=== PATIENT | male | born 1950 | race African-American/Black ===

== ENCOUNTER 2017-05-20 10:24 | Emergency (ER) | payer SELFPAY, MEDICARE ==
[2017-05-20 10:57] LABS: ADD MAN DIFF? NO
[2017-05-20 10:58] LABS: BILIRUBIN,URINE NEGATIVE (NEG); CLARITY,URINE CLEAR; COLOR,URINE YELLOW; GLUCOSE,URINE 100 mg/dL (NEG); NITRITE,URINE NEGATIVE (NEG); PROTEIN,URINE 30 mg/dL (NEG-TRACE)
[2017-05-20 10:59] LABS: BASO % 0 % (0-3); EOS # 0.1 x10^3/uL (0.0-0.7); EOS % 2 % (0-3); HEMATOCRIT 40.4 % (39.0-53.0); HEMOGLOBIN 13.7 g/dL (13.0-17.5); LYMPH # 1.2 x10^3/uL (1.0-4.8); LYMPH % 24 % (24-48); MEAN CORPUSCULAR HEMOGLOBIN 32 pg (25-35); MEAN CORPUSCULAR HGB CONC 34 g/dL (31-37); MEAN CORPUSCULAR VOLUME 94 fL (79-100); MONO # 0.6 x10^3/uL (0.0-1.1); MONO % 12 % (0-9); NEUT # 3.1 x10^3uL (1.8-7.7); NEUT % 62 % (31-73); PLATELET COUNT 188 x10^3/uL (140-400); RED BLOOD COUNT 4.31 x10^6/uL (4.30-5.70); RED CELL DISTRIBUTION WIDTH 14.2 % (11.5-14.5)
[2017-05-20 11:14] LABS: BACTERIA,URINE 0 /HPF (0-FEW); RBC,URINE 0 /HPF (0-2); SQUAMOUS EPITHELIAL CELL,UR MOD /LPF; WBC,URINE OCC /HPF (0-4)
[2017-05-20 11:16] LABS: ANION GAP 8 (6-14); BLOOD UREA NITROGEN 14 mg/dL (8-26); BUN/CREATININE RATIO 16 (6-20); CALCIUM 8.7 mg/dL (8.5-10.1); CARBON DIOXIDE 26 mmol/L (21-32); CHLORIDE 107 mmol/L (98-107); CREATININE 0.9 mg/dL (0.7-1.3); GFR 101.8; GLUCOSE 138 mg/dL (70-99); POTASSIUM 3.6 mmol/L (3.5-5.1); SODIUM 141 mmol/L (136-145)
[2017-05-20 11:20] LABS: TROPONINI < 0.017 ng/mL (0.000-0.055)
[2017-05-20 11:22] LABS: NT-PRO BNP 222 pg/mL (0-124)
[2017-05-20 11:26] LABS: ALBUMIN 3.5 g/dL (3.4-5.0); ALBUMIN/GLOBULIN RATIO 1.1 (1.0-1.7); ALK PHOS 77 U/L (46-116); ALT (SGPT) 35 U/L (16-63); AST (SGOT) 22 U/L (15-37); TOTAL BILIRUBIN 0.5 mg/dL (0.2-1.0); TOTAL PROTEIN 6.8 g/dL (6.4-8.2)
[2017-05-20] MEDS: IPRATRPIUM/ALBUTEROL 0.5/2.5MG 3 ML NEBU. NEB (12:31)
== END 2017-05-20 14:37 | disposition home or self-care (01) ==
LOC: ER 10:24
DX: R05 Cough (principal); R06.02 Shortness of breath; E11.9 Type 2 diabetes mellitus without complications; I10 Essential (primary) hypertension
CPT/HCPCS: 36415; 71045; 80053; 81001; 83880; 84484; 85025; 93005; 94640; 99285-25; J7620

== ENCOUNTER 2019-02-26 12:13 | Emergency (ER) | payer MEDICARE ==
[~2019-02-26] VITALS: Ht 176.5 cm; Wt 104.3 kg
[~2019-02-26 12:13] MED LIST: ALBU2.5V8 INH; AMLO10TA8 PO; ASPI-612 PO; ATOR40TA PO; HYDR-2145 PO; LABE200T4 PO; LISI-130 PO; METF10007 PO; METO-247 PO
[2019-02-26] MEDS ORDERED: LABETALOL 20 MG/4 ML DISP.SYRIN. IVP ONE (12:30)
[2019-02-26 13:00] LABS: BASO % 0 % (0-3); EOS # 0.1 x10^3/uL (0.0-0.7); EOS % 2 % (0-3); HEMATOCRIT 43.3 % (39.0-53.0); HEMOGLOBIN 14.8 g/dL (13.0-17.5); LYMPH # 1.1 x10^3/uL (1.0-4.8); LYMPH % 22 % (24-48); MEAN CORPUSCULAR HEMOGLOBIN 32 pg (25-35); MEAN CORPUSCULAR HGB CONC 34 g/dL (31-37); MEAN CORPUSCULAR VOLUME 94 fL (79-100); MONO # 0.4 x10^3/uL (0.0-1.1); MONO % 9 % (0-9); NEUT # 3.2 x10^3/uL (1.8-7.7); NEUT % 67 % (31-73); PLATELET COUNT 140 x10^3/uL (140-400); RED BLOOD COUNT 4.62 x10^6/uL (4.30-5.70); RED CELL DISTRIBUTION WIDTH 13.8 % (11.5-14.5); WHITE BLOOD COUNT 4.8 x10^3/uL (4.0-11.0)
[2019-02-26 13:20] LABS: CREATININE 1.1 mg/dL (0.7-1.3); GFR 80.3
[2019-02-26 13:24] LABS: ALBUMIN 3.8 g/dL (3.4-5.0); ALBUMIN/GLOBULIN RATIO 1.4 (1.0-1.7); TOTAL BILIRUBIN 0.7 mg/dL (0.2-1.0); TOTAL PROTEIN 6.6 g/dL (6.4-8.2)
--- NOTE | 2019-02-26 13:39 | EKG ---
[facility] [address] [place] [address] Test Date: 2019-02-26 Test Time: 12:43:58 Pat Name: ELIZABETH TOBIN Department: Room: Gender: M Fisher Mussel: : 1950 Requested By: NANI CHE Order Number: [id number] Reading MD: Measurements Intervals [place] Rate: 53 P: 38 LA: 202 QRS: -1 QRSD: 86 T: 3 QT: 462 QTc: 436 Interpretive Statements SINUS RHYTHM LEFTWARD AXIS ST & T ABNORMALITY, CONSIDER RECENT HIGH LATERAL MYOCARDIAL OR PERICARDIAL DAMAGE ABNORMAL ECG RI6.01 No previous ECG available for comparison
[2019-02-26] MEDS ORDERED: cloNIDine HCL 0.1 MG TABLET PO ONE (13:45)
--- NOTE | 2019-02-26 14:03 | PHYS DOC ---
Past Medical History Past Medical History: Cancer, Diabetes-Type II, High Cholesterol, Hypertension, Pneumonia Additional Past Medical Histor: prostate cancer Additional Past Surgical Histo: Prostatectomy Additional Information: quit smoking 07/21/2007 Alcohol Use: None Drug Use: None Adult General Chief Complaint Chief Complaint: HYPERTENSION HPI HPI Patient is a 68 year old -Prydeinig Prydeinig male with history of hypertension, diabetes who presents dizziness upon standing and blood pressure. Patient denies headache, blurred vision, extremity weakness loss of sensation of vertigo or leaning to one side. Patient does blood pressure which was 220s over 120s. Patient states he is compliant with his blood pressure medications but is not been so with his diet, fluids which and nitrates and sodium. Chest pain palpitations, shortness of breath, increased leg pain or swelling. No other acute symptoms or complaints. Blood pressure is 200s over 120s at triage. Review of Systems Review of Systems Review of symptoms as per history of present illness. All other review symptoms are negative. All other systems were reviewed and found to be within normal limits, except as documented in this note. Current Medications Current Medications Current Medications Medications (Trade) Dose Ordered Sig/Maria E Start Time Stop Time Status Last Admin Dose Admin Clonidine HCl (Catapres) 0.2 mg 1X ONCE 02/26/19 13:45 02/26/19 13:46 DC 02/26/19 14:20 0.2 MG Furosemide (Lasix) 20 mg 1X ONCE 02/26/19 14:45 02/26/19 14:46 DC 02/26/19 14:57 20 MG Labetalol HCl (Normodyne Iv Push) 20 mg 1X ONCE 02/26/19 12:30 02/26/19 12:32 DC 02/26/19 13:08 10 MG Allergies Allergies Allergies Coded Allergies Type Severity Reaction Last Updated Verified No Known Drug Allergies 05/09/17 No Physical Exam Physical Exam Constitutional: Well developed, well nourished, no acute distress, non-toxic appearance. [] HENT: Normocephalic, atraumatic, bilateral external ears normal, oropharynx moist, nose normal. [] Eyes: PERRLA, EOMI, conjunctiva normal, no discharge. [] Neck: Normal range of motion, no tenderness, supple, no stridor. [] Cardiovascular:Heart rate regular rhythm, no murmur [] Lungs & Thorax: Bilateral breath sounds clear to auscultation [] Abdomen: Bowel sounds normal, soft, no tenderness. [] Skin: Warm, dry, no erythema. [] Back: No tenderness. [] Extremities: No tenderness. [] Neurologic: Alert and oriented X 3, normal motor function, normal sensory function, no focal deficits noted. [] Psychologic: Affect normal, judgement normal, mood normal. [] Current Patient Data Vital Signs Vital Signs Date Time Temp Pulse Resp B/P (MAP) Pulse Ox O2 Delivery O2 Flow Rate FiO2 02/26/19 14:21 56 14 98 02/26/19 14:20 206/103 02/26/19 12:34 97.3 Room Air 97.3 Lab Values Laboratory Tests Test 02/26/19 12:50 02/26/19 13:57 White Blood Count 4.8 x10^3/uL (4.0-11.0) Red Blood Count 4.62 x10^6/uL (4.30-5.70) Hemoglobin 14.8 g/dL (13.0-17.5) Hematocrit 43.3 % (39.0-53.0) Mean Corpuscular Volume 94 fL (79-100) Mean Corpuscular Hemoglobin 32 pg (25-35) Mean Corpuscular Hemoglobin Concent 34 g/dL (31-37) Red Cell Distribution Width 13.8 % (11.5-14.5) Platelet Count 140 x10^3/uL (140-400) Neutrophils (%) (Auto) 67 % (31-73) Lymphocytes (%) (Auto) 22 % (24-48) L Monocytes (%) (Auto) 9 % (0-9) Eosinophils (%) (Auto) 2 % (0-3) Basophils (%) (Auto) 0 % (0-3) Neutrophils # (Auto) 3.2 x10^3/uL (1.8-7.7) Lymphocytes # (Auto) 1.1 x10^3/uL (1.0-4.8) Monocytes # (Auto) 0.4 x10^3/uL (0.0-1.1) Eosinophils # (Auto) 0.1 x10^3/uL (0.0-0.7) Basophils # (Auto) 0.0 x10^3/uL (0.0-0.2) Sodium Level 138 mmol/L (136-145) Potassium Level 4.0 mmol/L (3.5-5.1) Chloride Level 102 mmol/L (98-107) Carbon Dioxide Level 28 mmol/L (21-32) Anion Gap 8 (6-14) Blood Urea Nitrogen 13 mg/dL (8-26) Creatinine 1.1 mg/dL (0.7-1.3) Estimated GFR (Cockcroft-Gault) 80.3 BUN/Creatinine Ratio 12 (6-20) Glucose Level 111 mg/dL (70-99) H Calcium Level 9.0 mg/dL (8.5-10.1) Total Bilirubin 0.7 mg/dL (0.2-1.0) Aspartate Amino Transferase (AST) 23 U/L (15-37) Alanine Aminotransferase (ALT) 24 U/L (16-63) Alkaline Phosphatase 80 U/L (46-116) Troponin I Quantitative < 0.017 ng/mL (0.000-0.055) Total Protein 6.6 g/dL (6.4-8.2) Albumin 3.8 g/dL (3.4-5.0) Albumin/Globulin Ratio 1.4 (1.0-1.7) Urine Collection Type Unknown Urine Color Yellow Urine Clarity Clear Urine pH 7.0 Urine Specific [place] 1.015 Urine Protein Negative mg/dL (NEG-TRACE) Urine Glucose (UA) Negative mg/dL (NEG) Urine Ketones (Stick) Negative mg/dL (NEG) Urine Blood Negative (NEG) Urine Nitrite Negative (NEG) Urine Bilirubin Negative (NEG) Urine Urobilinogen Dipstick 1.0 mg/dL (0.2 mg/dL) Urine Leukocyte Esterase Negative (NEG) Urine RBC Rare /HPF (0-2) Urine WBC 0 /HPF (0-4) Urine Squamous Epithelial Cells Occ /LPF Urine Bacteria 0 /HPF (0-FEW) Laboratory Tests 02/26/19 12:50 Laboratory Tests 02/26/19 12:50 EKG EKG [EKG: Reviewed] Radiology/Procedures Radiology/Procedures [CXR: Reviewed] Course & Med Decision Making Course & Med Decision Making Pertinent Labs and Imaging studies reviewed. (See chart for details) Patient is asymptomatic in the ED. Blood pressure improved to 170s over 90s prior to discharge. Recommend continued home treatment, blood pressure monitoring and PCP follow-up for further management. Term precautions reviewed.] Dragon Disclaimer Dragon Disclaimer This electronic medical record was generated, in whole or in part, using a voice recognition dictation system. Departure Departure Impression: Primary Impression: Accelerated hypertension Disposition: 01 HOME, SELF-CARE Condition: STABLE Referrals: LEON VEE MD (PCP) Patient Instructions: Hypertension Additional Instructions: Resume blood pressure medications as scheduled upon returning home. Record daily blood pressure readings and follow-up with your primary care provider further management. Return to the ED if new or concerning symptoms NANI CHE DO Feb 26, 2019 14:03
[2019-02-26 14:05] LABS: BILIRUBIN,URINE NEGATIVE (NEG); COLOR,URINE YELLOW; NITRITE,URINE NEGATIVE (NEG); PROTEIN,URINE NEGATIVE (NEG-TRACE)
[2019-02-26 14:14] LABS: CLARITY,URINE CLEAR
[2019-02-26 14:15] LABS: BACTERIA,URINE 0 /HPF (0-FEW); RBC,URINE RARE /HPF (0-2); SQUAMOUS EPITHELIAL CELL,UR OCC /LPF; WBC,URINE 0 /HPF (0-4)
[2019-02-26] MEDS ORDERED: FUROSEMIDE 20 MG/2 ML VIAL. IVP ONE (14:45)
[2019-02-26 15:34] VITALS: BP 199/105
== END 2019-02-26 15:37 | disposition home or self-care (01) ==
LOC: ER 12:13
DX: I10 Essential (primary) hypertension (principal); E11.9 Type 2 diabetes mellitus without complications; E78.00 Pure hypercholesterolemia, unspecified; Z87.891 Personal history of nicotine dependence
CPT/HCPCS: 36415; 80053; 81001; 84484; 85025; 93005; 96374; 96375; 99285; J1940; J3490

== ENCOUNTER 2019-10-12 14:38 | Emergency (ER) | payer MEDICARE ==
[~2019-10-12] VITALS: Ht 177.8 cm; Wt 97.7 kg
[~2019-10-12 14:38] MED LIST changes: -ASPI-612 PO; +ASPI-886 PO
[2019-10-12 15:35] VITALS: BP 122/61
[2019-10-12] MEDS ORDERED: HYDR15CR20 TP (16:26)
[2019-10-12] MEDS ORDERED: CETI10TA16 PO (16:26)
--- NOTE | 2019-10-12 16:27 | PHYS DOC ---
Past Medical History Past Medical History: Cancer, Diabetes-Type II, High Cholesterol, Hypertension, Pneumonia Additional Past Medical Histor: prostate cancer Past Surgical History: Other Additional Past Surgical Histo: Prostatectomy Smoking Status: Former Smoker Alcohol Use: None Drug Use: None General Adult EDM: Chief Complaint: INSECT BITE HPI: HPI: Patient is a 69 year old AA male who presents to the emergency department with complaints of pain and itching after being stung by several yellow jackets while in his yard this afternoon. He denies any shortness of breath, wheezing, chest pain, nausea, vomiting, or rash. He reports that he was stung multiple times on his left lower leg, his right buttock, and his right thigh. He denies any bleeding or drainage from the sites. He describes the pain as burning and itching. He denies any alleviating factors. He denies any radiation of the pa in. Review of Systems: Review of Systems: Constitutional: Denies fever or chills. [] Respiratory: Denies cough or shortness of breath. [] Cardiovascular: Denies chest pain or edema. [] GI: Denies nausea, vomiting Musculoskeletal: Denies joint pain or swelling [] Integument: See HPI Neurologic: Denies headache, focal weakness or sensory changes. [] Psychiatric: Denies depression or anxiety. [] Heart Score: Risk Factors: Risk Factors: DM, Current or recent (<one month) smoker, HTN, HLP, family history of CAD, obesity. Risk Scores: Score 0 - 3: 2.5% MACE over next 6 weeks - Discharge Home Score 4 - 6: 20.3% MACE over next 6 weeks - Admit for Clinical Observation Score 7 - 10: 72.7% MACE over next 6 weeks - Early Invasive Strategies Allergies: Allergies: Allergies Coded Allergies Type Severity Reaction Last Updated Verified No Known Drug Allergies 05/09/17 No Physical Exam: PE: Constitutional: Well developed, well nourished, no acute distress, non-toxic appearance. [] HENT: Normocephalic, atraumatic, bilateral external ears normal, nose normal. [] Eyes: PERRLA, EOMI, conjunctiva normal, no discharge. [] Neck: Normal range of motion, no stridor. [] Cardiovascular:Heart rate regular rhythm, no murmur Lungs & Thorax: Respirations even and unlabored, no retractions, no respiratory distress, lungs CTA Skin: Warm, dry; no erythema or welts noted to the lower left leg, there are some erythemic welts with central punctum noted to the right buttock and right medial thigh, no bleeding, no drainage, no warmth, no surrounding cellulitis or streaking. Consistent with a insect sting/bite Extremities: No cyanosis, ROM intact, no edema. [] Neurologic: Alert and oriented X 3, no focal deficits noted. [] Psychologic: Affect normal, judgement normal, mood normal. [] Current Patient Data: Vital Signs: Vital Signs Date Time Temp Pulse Resp B/P (MAP) Pulse Ox O2 Delivery O2 Flow Rate FiO2 10/12/19 15:35 97.8 64 122/61 (81) 96 Room Air 97.8 EKG: EKG: [] Radiology/Procedures: Radiology/Procedures: [] Course & Med Decision Making: Course & Med Decision Making Pertinent Labs and Imaging studies reviewed. (See chart for details) Patient presented to the emergency department with complaints of itching and pain after being stung by multiple yellow jackets today. I encouraged the patient to apply cool cloths to the area as needed for comfort. I prescribed [id number] hydrocortisone cream and once daily Zyrtec. I encouraged patient to follow-up with his primary care doctor in 1 to 2 days if the symptoms persisted, return to the ER if symptoms worsened or he develops shortness of breath or difficulty swallowing. Patient verbalized an understanding of home care, medications, follow-up, and return to ED instructions and was in agreement with the plan of care. [] Yurion Disclaimer: Dragalba Disclaimer: This electronic medical record was generated, in whole or in part, using a voice recognition dictation system. Departure Departure Impression: Primary Impression: Allergic reaction to insect sting Qualified Codes: T63.483A - Toxic effect of venom of other arthropod, assault, initial encounter Disposition: 01 HOME, SELF-CARE Condition: STABLE Referrals: LEON VEE MD (PCP) Patient Instructions: Insect Sting Allergy Additional Instructions: Fill the prescriptions and take them as directed. Follow-up with your primary care doctor if symptoms persist, return to the ER if symptoms worsen or you develop shortness of breath or difficulty swallowing. You may also apply cool cloths to the affected sites as needed for comfort. Scripts Cetirizine Hcl (CETIRIZINE HCL) 10 Mg Tablet 1 TAB PO DAILY PRN for ITCHING, #30 TAB 0 Refills Prov: OMER KAPLAN APRN 10/12/19 Hydrocortisone Valerate (HYDROCORTISONE VALERATE) 15 Gm Cream..g. 1 HEATHER TP TID PRN for ITCHING for 7 Days, #30 GM 0 Refills 1% hydrocortisone cream Prov: OMER KAPLAN APRN 10/12/19 Justicifation of Admission Dx: Justifications for Admission: Justification of Admission Dx: N/A OMER KAPLAN APRN Oct 12, 2019 16:26
== END 2019-10-12 16:33 | disposition home or self-care (01) ==
LOC: ER 14:38
DX: T63.463A Toxic effect of venom of wasps, assault, initial encounter (principal); T78.40XA Allergy, unspecified, initial encounter; E11.9 Type 2 diabetes mellitus without complications; E78.00 Pure hypercholesterolemia, unspecified; I10 Essential (primary) hypertension; Z87.891 Personal history of nicotine dependence; Y92.89 Other specified places as the place of occurrence of the external cause
CPT/HCPCS: 99282

== ENCOUNTER 2020-09-08 08:57 | Emergency (ER) | payer MEDICARE ==
[~2020-09-08] VITALS: Ht 177.8 cm; Wt 96.3 kg
[~2020-09-08 08:57] MED LIST changes: +AMLO-187 PO; -AMLO10TA8 PO; +CETI10TA16 PO; +HYDR15CR20 TP
[2020-09-08 09:38] LABS: BASO % 1 % (0-3); EOS # 0.1 x10^3/uL (0.0-0.7); EOS % 2 % (0-3); HEMATOCRIT 37.8 % (39.0-53.0); LYMPH # 1.1 x10^3/uL (1.0-4.8); LYMPH % 24 % (24-48); MEAN CORPUSCULAR HEMOGLOBIN 32 pg (25-35); MEAN CORPUSCULAR HGB CONC 35 g/dL (31-37); MEAN CORPUSCULAR VOLUME 93 fL (79-100); MONO # 0.5 x10^3/uL (0.0-1.1); MONO % 11 % (0-9); NEUT # 2.9 x10^3/uL (1.8-7.7); NEUT % 63 % (31-73); PLATELET COUNT 139 x10^3/uL (140-400); RED BLOOD COUNT 4.05 x10^6/uL (4.30-5.70); RED CELL DISTRIBUTION WIDTH 13.9 % (11.5-14.5); WHITE BLOOD COUNT 4.6 x10^3/uL (4.0-11.0)
[2020-09-08 09:46] LABS: CALCIUM 9.6 mg/dL (8.5-10.1); CREATININE 1.4 mg/dL (0.7-1.3)
[2020-09-08 09:47] LABS: GFR 60.6; POTASSIUM 3.4 mmol/L (3.5-5.1)
[2020-09-08 09:52] LABS: ALBUMIN 3.7 g/dL (3.4-5.0); ALBUMIN/GLOBULIN RATIO 1.1 (1.0-1.7); TOTAL BILIRUBIN 0.6 mg/dL (0.2-1.0)
--- NOTE | 2020-09-08 09:58 | EKG ---
[facility] [address] [place] [address] Test Date: 2020-09-08 Test Time: 09:04:16 Pat Name: ELIZABETH TOBIN Department: Room: Gender: Desulphurizer Operator: : 1950 Requested By: JOSIE QUINONEZ Order Number: [id number] Reading MD: Measurements Intervals [place] Rate: 71 P: 44 [place]: 220 QRS: 26 QRSD: 74 T: 29 QT: 396 QTc: 430 Interpretive Statements SINUS RHYTHM PROLONGED [place] INTERVAL ABNORMAL ECG RI6.01 No previous ECG available for comparison
--- NOTE | 2020-09-08 10:34 | ED.ADGEN ---
Past Medical History Past Medical History: Cancer, Diabetes-Type II, High Cholesterol, Hypertension, Pneumonia Additional Past Medical Histor: prostate cancer Past Surgical History: Other Additional Past Surgical Histo: Prostatectomy Smoking Status: Former Smoker Alcohol Use: None Drug Use: None General Adult EDM: Chief Complaint: OTHER COMPLAINTS HPI: HPI: Patient is 69-year-old male who presents to the emergency room with his for concern of possible heatstroke yesterday. Patient worked outside throughout the day yesterday. His states that he does a lot of sweating when he works outside. Patient states that he drinks lots of water when he is working outside does not typically drink any kind of Gatorade. His states that he was complaining of feeling lightheaded and like his arm was not fully moving. Patient states that he just feels tired. He feels otherwise normal. Review of Systems: Review of Systems: Complete ROS is negative unless otherwise documented in HPI Current Medications: Current Medications Medications (Trade) Dose Ordered Sig/Maria E Start Time Stop Time Status Last Admin Dose Admin Sodium Chloride 1,000 ml @ 1,000 mls/hr 1X ONCE 09/08/20 10:45 09/08/20 11:44 09/08/20 11:32 1,000 MLS/HR Allergies: Allergies: Allergies Coded Allergies Type Severity Reaction Last Updated Verified No Known Drug Allergies 05/09/17 No Physical Exam: PE: General: Awake, alert, NAD. Well Nourished, well hydrated. Cooperative HEENT: Atraumatic, EOMI, PERRL, airway patent, moist oral mucosa Neck: Supple, trachea midline Respiratory: CTA bilaterally, normal effort, no wheezing/crackles CV: RRR, no murmur, cap refill <2 GI: Soft, nondistended, nontender, no masses MSK: No obvious deformities Skin: Warm, dry, intact Neuro: A&O x3, speech NL, 5/5 strength in BUE/BLE distally and proximally, CN 2- 12 intact, cerebellar testing normal Psych: Normal affect, normal mood, not suicidal or homicidal Current Patient Data: Labs: Laboratory Tests Test 09/08/20 09:08 09/08/20 09:24 09/08/20 11:02 Glucose (Fingerstick) 113 mg/dL (70-99) H White Blood Count 4.6 x10^3/uL (4.0-11.0) Red Blood Count 4.05 x10^6/uL (4.30-5.70) L Hemoglobin 13.0 g/dL (13.0-17.5) Hematocrit 37.8 % (39.0-53.0) L Mean Corpuscular Volume 93 fL (79-100) Mean Corpuscular Hemoglobin 32 pg (25-35) Mean Corpuscular Hemoglobin Concent 35 g/dL (31-37) Red Cell Distribution Width 13.9 % (11.5-14.5) Platelet Count 139 x10^3/uL (140-400) L Neutrophils (%) (Auto) 63 % (31-73) Lymphocytes (%) (Auto) 24 % (24-48) Monocytes (%) (Auto) 11 % (0-9) H Eosinophils (%) (Auto) 2 % (0-3) Basophils (%) (Auto) 1 % (0-3) Neutrophils # (Auto) 2.9 x10^3/uL (1.8-7.7) Lymphocytes # (Auto) 1.1 x10^3/uL (1.0-4.8) Monocytes # (Auto) 0.5 x10^3/uL (0.0-1.1) Eosinophils # (Auto) 0.1 x10^3/uL (0.0-0.7) Basophils # (Auto) 0.0 x10^3/uL (0.0-0.2) Sodium Level 137 mmol/L (136-145) Potassium Level 3.4 mmol/L (3.5-5.1) L Chloride Level 100 mmol/L (98-107) Carbon Dioxide Level 27 mmol/L (21-32) Anion Gap 10 (6-14) Blood Urea Nitrogen 30 mg/dL (8-26) H Creatinine 1.4 mg/dL (0.7-1.3) H Estimated GFR (Cockcroft-Gault) 60.6 BUN/Creatinine Ratio 21 (6-20) H Glucose Level 102 mg/dL (70-99) H Calcium Level 9.6 mg/dL (8.5-10.1) Total Bilirubin 0.6 mg/dL (0.2-1.0) Aspartate Amino Transferase (AST) 26 U/L (15-37) Alanine Aminotransferase (ALT) 30 U/L (16-63) Alkaline Phosphatase 80 U/L (46-116) Total Protein 7.0 g/dL (6.4-8.2) Albumin 3.7 g/dL (3.4-5.0) Albumin/Globulin Ratio 1.1 (1.0-1.7) Urine Collection Type Unknown Urine Color Yellow Urine Clarity Clear Urine pH 5.5 (<5.0-8.0) Urine Specific [place] 1.020 (1.000-1.030) Urine Protein Negative mg/dL (NEG-TRACE) Urine Glucose (UA) Negative mg/dL (NEG) Urine Ketones (Stick) Negative mg/dL (NEG) Urine Blood Negative (NEG) Urine Nitrite Negative (NEG) Urine Bilirubin Negative (NEG) Urine Urobilinogen Dipstick 1.0 mg/dL (0.2 mg/dL) Urine Leukocyte Esterase Negative (NEG) Urine RBC 0 /HPF (0-2) Urine WBC 0 /HPF (0-4) Urine Squamous Epithelial Cells Mod /LPF Urine Bacteria 0 /HPF (0-FEW) Laboratory Tests 09/08/20 09:24 Laboratory Tests 09/08/20 09:24 Vital Signs: Vital Signs Date Time Temp Pulse Resp B/P (MAP) Pulse Ox O2 Delivery O2 Flow Rate FiO2 09/08/20 08:58 98.5 63 19 135/87 (81) 97 Room Air 98.5 EKG: EKG: [] Heart Score: C/O Chest Pain: N/A Risk Factors: Risk Factors: DM, Current or recent (<one month) smoker, HTN, HLP, family history of CAD, obesity. Risk Scores: Score 0 - 3: 2.5% MACE over next 6 weeks - Discharge Home Score 4 - 6: 20.3% MACE over next 6 weeks - Admit for Clinical Observation Score 7 - 10: 72.7% MACE over next 6 weeks - Early Invasive Strategies Radiology/Procedures: Radiology/Procedures: [] Course & Med Decision Making: Course & Med Decision Making Pertinent Labs and Imaging studies reviewed. (See chart for details) Patient is a 69-year-old male who presents to the emergency room with concern of possible heat illness. Patient is overall well-appearing. NIH score is 0. Lab work was ordered to evaluate for any signs of dehydration or electrolyte abnormalities. Patient was started on fluids. Patient does show signs of dehydration in his lab work. Lab work is otherwise unremarkable. He is feeling well at this time. He was given a liter of fluids. Patient will be discharged home and follow-up with primary care. Patient's test results and vitals while in the ED were fully reviewed and discussed with the patient. Patient is stable and at this time does not need admission to the hospital. We have discussed strict return precautions and the importance of following up with their Primary Care Physician. Patient stated understanding and was given an opportunity to ask any questions. Patient is in agreement with plan. Dragon Disclaimer: Dragon Disclaimer: This electronic medical record was generated, in whole or in part, using a voice recognition dictation system. Departure Departure Impression: Primary Impression: Dehydration after exertion Disposition: 01 HOME / SELF CARE / HOMELESS Condition: STABLE Referrals: LEON VEE MD (PCP) Patient Instructions: Dehydration, Adult JOSIE QUINONEZ MD Sep 08, 2020 10:33
[2020-09-08] MEDS ORDERED: IV NORMAL SALINE 1000ML BAG 1,000 ML IV ONE (10:45)
[2020-09-08 11:17] LABS: BILIRUBIN,URINE NEGATIVE (NEG); CLARITY,URINE CLEAR; COLOR,URINE YELLOW; NITRITE,URINE NEGATIVE (NEG); PH,URINE 5.5 (<5.0-8.0); PROTEIN,URINE NEGATIVE (NEG-TRACE)
[2020-09-08 11:26] LABS: BACTERIA,URINE 0 /HPF (0-FEW); RBC,URINE 0 /HPF (0-2); WBC,URINE 0 /HPF (0-4)
[2020-09-08 12:16] VITALS: BP 134/69
== END 2020-09-08 12:44 | disposition home or self-care (01) ==
LOC: ER 08:57
DX: E86.0 Dehydration (principal); E11.9 Type 2 diabetes mellitus without complications; E78.00 Pure hypercholesterolemia, unspecified; I10 Essential (primary) hypertension
CPT/HCPCS: 36415; 80053; 81001; 82962; 85025; 93005; 96360; 99285; J7030